=== PATIENT | female | born 1960 | race Asian ===

== ENCOUNTER 2018-06-13 13:22 | Observation (INO) ==
--- NOTE | 2018-06-13 14:13 | ED ---
HPI General Chief complaint: Chest Pain Stated complaint: chest pain Time Seen by Provider: 06/13/18 14:10 History of Present Illness HPI narrative: 58-year-old female with history of hypertension and diabetes presents via EMS for evaluation of chest pain. Symptoms started this morning at 9 AM. She reports that she was sweeping when symptoms started. She reports that the pain was in the substernal and epigastric region. There is associated dizziness and lightheadedness. She received 324 mg of aspirin and 3 sublingual nitroglycerin via EMS. Initially her blood pressure was noted to be 200/100 and improved to 160/90 after this treatment per EMS. Her symptoms have vastly improved. Currently she is complaining of mild pain in the epigastrium and substernal region. She reports some nausea as well as one episode of emesis as well. Denies cough, congestion, dysuria, flank pain, back pain, lower extremity edema. Denies any known personal history of coronary artery disease. She reports her father of an [place] at the age of 61. She has no other complaints at this time. Related Data Home Medications Medication Instructions Recorded Confirmed amlodipine 10 mg PO DAILY 06/13/18 06/13/18 Allergies Allergy/AdvReac Type Severity Reaction Status Date / Time No Known Allergies Allergy Verified 06/13/18 14:12 Review of Systems ROS: all other systems reviewed are negative [facility] Medical History Medical History Diabetes (Acute) Hypertension (Acute) Social History Social History Substance History: No History of Abuse Second Hand Smoke Exposure: No Smoking Status: Former smoker How Often Do You Have a Drink Containing Alcohol: Never Recent Travel in [facility] within the Last 8 Weeks: No Recent Out of Country Travel within the Last 8 Weeks: No Immunization History Tetanus Immunization: Unsure Exam Narrative Exam Narrative: GENERAL: Well-developed well-nourished female no acute distress SKIN: Warm and dry. HEAD: Atraumatic. Normocephalic. EYES: Pupils equal and round. No scleral icterus. No injection or drainage. ENT: No nasal bleeding or discharge. Mucous membranes pink and moist. NECK: Trachea midline. No JVD. CARDIOVASCULAR: Regular rate and rhythm. No murmur appreciated. RESPIRATORY: No accessory muscle use. Clear to auscultation. Breath sounds equal bilaterally. GASTROINTESTINAL: Abdomen soft, nontender. There is no right upper quadrant tenderness. MUSCULOSKELETAL: No obvious deformities. No clubbing. No cyanosis. No edema. NEUROLOGICAL: Awake and alert. No obvious cranial nerve deficits. Motor grossly within normal limits. Normal speech. Course Initial Documented Vital Signs Pulse Rate 74 06/13/18 14:00 Respiratory Rate 20 06/13/18 14:00 Blood Pressure 197/93 H 06/13/18 14:00 Pulse Oximetry 98 06/13/18 14:00 Last Documented Vital Signs Temperature 97.7 F 06/13/18 14:10 Pulse Rate 77 06/13/18 16:18 Respiratory Rate 21 06/13/18 16:18 Blood Pressure 168/100 H 06/13/18 16:33 Pulse Oximetry 100 06/13/18 16:34 Medical Decision Making ALEXANDER Attestation ALEXANDER supervised visit: Yes Attestation: I, Dr. Moscoso, have reviewed the advance practice practitioner's documentation and am in agreement, met with the patient face to face, made the diagnosis, and the medical decision making was done by me. *My assessment and Findings: Patient is a 58 year old female who comes in complaining of chest pain that started this morning while cleaning. She says she has no doctor here and has not seen a doctor in over a year. Exam shows no acute abnormalities. Labs show no acute abnormalities, Troponin is negative. Patient will be placed in chest pain center for further management. MDM Narrative Medical decision making narrative: Patient was placed on ECG monitoring pulse oximetry. A 12-lead EKG was obtained revealing sinus rhythm with a rate of 74, no acute ST elevations. Lab work, chest x-ray ordered. The patient was given 10 mg of labetalol. Lab work and imaging studies have been reviewed and found to 164/93. The patient's pain has resolved completely. At this point in time given her risk factors the plan is to admit her into the chest pain center for serial cardiac enzymes and rule out purposes. She is agreeable. Medical Screen Exam Complete: Yes Emergency Medical Condition: Yes Differential Diagnosis Differential Diagnosis: Acute coronary syndrome, aortic dissection, pericarditis , myocarditis Lab Data Result diagrams: 06/13/18 14:19 06/13/18 14:19 Lab Results 06/13/18 06/13/18 06/13/18 Range/Units 14:19 14:19 14:19 WBC 8.1 (4.0-11.0) th/mm3 RBC 4.27 (4.00-5.30) mil/mm3 Hgb 14.2 (11.6-15.3) gm/dL Hct 40.9 (35.0-46.0) % MCV 95.7 (80.0-100.0) fL MCH 33.3 (27.0-34.0) pg MCHC 34.8 (32.0-36.0) % RDW 12.9 (11.6-17.2) % Plt Count 149 L (150-450) th/mm3 MPV 10.9 (7.0-11.0) fL Neut % (Auto) 76.4 H (16.0-70.0) % Lymph % (Auto) 15.7 (9.0-44.0) % [place] % (Auto) 6.7 (0.0-8.0) % Eos % (Auto) 0.8 (0.0-4.0) % Baso % (Auto) 0.4 (0.0-2.0) % Neut # (Auto) 6.2 (1.8-7.7) th/mm3 Lymph # (Auto) 1.3 (1.0-4.8) th/mm3 [place] # (Auto) 0.5 (0.0-0.9) th/mm3 Eos # (Auto) 0.1 (0.0-0.4) th/mm3 Baso # (Auto) 0.0 (0.0-0.2) th/mm3 WBC Differential . Differential Comment Auto diff final PT 9.8 (9.8-11.6) sec INR 1.0 Ratio APTT 27.8 (23.4-31.7) sec Sodium 139 (136-145) meq/L Potassium 3.5 (3.5-5.1) meq/L Chloride 102 (98-107) meq/L Carbon Dioxide 28.6 (21.0-32.0) meq/L Anion Gap 8 (5-15) meq/L BUN 12 (7-18) mg/dL Creatinine 0.63 (0.50-1.00) mg/dL Estimated GFR Greater than 89 (>89) mL/min Random Glucose 181 H (74-106) mg/dL Calcium 8.6 (8.5-10.1) mg/dL Magnesium 1.9 (1.5-2.5) mg/dL Total Bilirubin 0.2 (0.2-1.0) mg/dL AST 16 (15-37) U/L ALT 24 (10-53) U/L Alkaline Phosphatase 88 (45-117) U/L Total Creatine Kinase 67 (26-192) U/L Troponin I 0.03 (0.02-0.05) ng/mL Total Protein 7.5 (6.4-8.2) g/dL Albumin 3.7 (3.4-5.0) g/dL Lipase 175 (73-393) U/L Imaging Data Radiologist's impression: Chest X-Ray 06/13/18 14:10 CONCLUSION: 1. No acute cardiopulmonary disease. Discharge Plan Discharge Disposition Patient Disposition: ED Admit(ED Internal Use Only) Discharge Condition Condition: Stable Discharge Order Discharge Orders: ED Use Only Admit Order (Routine); Ordered 06/13/18 Ordered By: Wali Chambers Discharge Details Diagnosis: Chest pain Physicians Team ED Provider: Milli Moscoso ED Midlevel Provider: Wali Chambers Primary Care Provider: Primary Care Danayi,Kate Attending Provider: Germania Tate Status ED Status: Admitted Observation Patient
[2018-06-13] MEDS ORDERED: Labetalol HCl Inj 100 MG/20 ML Vial IV.PUSH ONE (14:16)
[2018-06-13] MEDS ORDERED: Labetalol HCl Inj 100 MG/20 ML Vial ONE (14:26)
--- NOTE | 2018-06-13 14:42 | XR ---
EXAM DATE: 06/13/2018 2:32 PM EST AGE/SEX: 58 years / Female INDICATIONS: Dizzy today. CLINICAL DATA: This is the patient's initial encounter. Patient reports that signs and symptoms have been present for 1 day and indicates a pain score of 0/10. MEDICAL/SURGICAL HISTORY: None. None. COMPARISON: No prior exams available for comparison. FINDINGS: A single AP view of the chest demonstrates the lungs to be symmetrically aerated without evidence of mass, infiltrate or effusion. The cardiomediastinal contours are unremarkable. Osseous structures a re intact. CONCLUSION: 1. No acute cardiopulmonary disease. Electronically signed by: Sami Mora MD 06/13/2018 2:40 PM EST
[2018-06-13 15:01] LABS: Baso % (Auto) 0.4 % (0.0-2.0); Eos # (Auto) 0.1 th/mm3 (0.0-0.4); Eos % (Auto) 0.8 % (0.0-4.0); Hematocrit 40.9 % (35.0-46.0); Hemoglobin 14.2 gm/dL (11.6-15.3); Lymph # (Auto) 1.3 th/mm3 (1.0-4.8); Lymph % (Auto) 15.7 % (9.0-44.0); Mean Corpuscular HGB Conc 34.8 % (32.0-36.0); Mean Corpuscular Hemoglobin 33.3 pg (27.0-34.0); Mean Corpuscular Volume 95.7 fL (80.0-100.0); Mean Platelet Volume 10.9 fL (7.0-11.0); Mono # (Auto) 0.5 th/mm3 (0.0-0.9); Mono % (Auto) 6.7 % (0.0-8.0); Neut # (Auto) 6.2 th/mm3 (1.8-7.7); Neut % (Auto) 76.4 % (16.0-70.0); Platelet Count 149 th/mm3 (150-450); Red Blood Count 4.27 mil/mm3 (4.00-5.30); Red Cell Distribution Width 12.9 % (11.6-17.2); White Blood Count 8.1 th/mm3 (4.0-11.0)
[2018-06-13 15:08] LABS: Alanine Aminotransferase 24 U/L (10-53); Albumin 3.7 g/dL (3.4-5.0); Alkaline Phosphatase 88 U/L (45-117); Anion Gap 8 meq/L (5-15); Aspartate Aminotransferase 16 U/L (15-37); Blood Urea Nitrogen 12 mg/dL (7-18); Calcium 8.6 mg/dL (8.5-10.1); Carbon Dioxide 28.6 meq/L (21.0-32.0); Chloride 102 meq/L (98-107); Glomerular Filtration Rate Greater Than 89 mL/min (>89); Glucose,Random 181 mg/dL (74-106); Lipase 175 U/L (73-393); Magnesium 1.9 mg/dL (1.5-2.5); Potassium 3.5 meq/L (3.5-5.1); Sodium 139 meq/L (136-145); Total Protein 7.5 g/dL (6.4-8.2); Troponin I 0.03 ng/mL (0.02-0.05)
[2018-06-13 15:09] LABS: Creatine Kinase 67 U/L (26-192)
[2018-06-13 15:12] LABS: Activated Partial Thrombo Time 27.8 sec (23.4-31.7)
[2018-06-13 15:14] LABS: Prothrombin Time 9.8 sec (9.8-11.6)
[2018-06-13] MEDS ORDERED: ALPRAZolam 0.25 MG Tablet PO PRN (15:59)
[2018-06-13] MEDS ORDERED: Acetaminophen 500 MG Tablet PO PRN (16:01)
--- NOTE | 2018-06-13 16:11 | P.HPCA ---
History of Present Illness Primary Care Physician: No Primary Care Physician Chief Complaint: Chest pain History of Present Illness: This is a 58-year-old male with history of hypertension that presents to ED via EMS with complaint of chest pain. She has history of hypertension but states she only takes her amlodipine 10 mg when she is dizzy or has a headache. Out of weeks time she may take it twice. She did take it this morning after having chest pain and feeling dizzy and having headache. She states she was doing some housework around 9:00 this morning when she developed a central chest pressure that she describes as mild. The same time she felt as if the room was spinning and had a headache. She took 1 of her blood pressure pills but her symptoms did not resolve prompting her to come to the ED. States the chest discomfort lasted about 3 hours. She was short of breath nauseous and diaphoretic. She found nothing in particular to help or worsen the discomfort when it was present. Discomfort did not radiate. Cannot recall prior cardiac workup. States she has blood pressure medicine to take at home she is does not take it daily. There is heart disease in her family. Currently denies discomfort in her chest. History of hypertension and is essentially noncompliant with medication. Denies hyperlipidemia, diabetes, and known CAD. Patient quit smoking in 2010 after smoking about 2 pack of series daily for 3 years. Denies alcohol or illicit drug use. She states her father at age 61 of a myocardial infarction. - Diagnosis (1) Chest pain (2) Hypertension Review of Systems GENERAL: This is a well-nourished, well-developed patient, in no apparent distress. Patient speaks in clear complete sentences. Patient is pleasant. HEENT: Head is atraumatic and normocephalic. Neck is supple without lymphadenopathy and trachea is midline. No JVD or carotid bruits. CARDIOVASCULAR: Regular rate and rhythm without murmurs, gallops, or rubs. RESPIRATORY: Clear to auscultation. Breath sounds equal bilaterally. No wheezes , rales, or rhonchi. Chest wall is nontender. No use of accessory muscles. GASTROINTESTINAL: Abdomen is nontender, nondistended. Abdomen soft. No obvious pulsatile mass or bruit. No CVA tenderness. Strong femoral pulses bilaterally. Normal bowel sounds in all quadrants. MUSCULOSKELETAL: Patient is moving upper and lower extremities freely. No calf tenderness or edema, no Homans sign. Strong pulses in upper and lower extremities. NEUROLOGICAL: Patient is alert and oriented. Cranial nerves 2-12 are grossly intact. No focal deficits and speech is clear. SKIN: No rash and turgor is normal. PMFSH - History History Provided By: Patient - Medical History Medical History: Medical History (Last Updated 06/13/18 @ 14:08 by Carline Lozano) Diabetes Hypertension - Tobacco History Second Hand Smoke Exposure: No Smoking Status: Former smoker - Alcohol History How Often Do You Have a Drink Containing Alcohol: Never - Substance Use History Substance History: No History of Abuse - Travel History Recent Travel in the [facility] Within the Last 8 Weeks: No Recent Travel Out of the Country Within the Last 8 Weeks: No - Immunization History Tetanus Immunization: Unsure Medications and Allergies Active Medications: Active Medications Alprazolam (Xanax) 0.25 mg PO Q8H PRN PRN Reason: ANXIETY Aspirin (Aspirin) 325 mg PO DAILY ERIC Ondansetron HCl (Zofran Inj) 4 mg IV.PUSH Q6H PRN PRN Reason: NAUSEA Pantoprazole Sodium (Protonix) 40 mg PO DAILY ERIC Sodium Chloride (Ns Flush) 2 ml IV.FLUSH UNSCH PRN PRN Reason: FLUSH AFTER USING IV ACCESS Sodium Chloride (Ns Flush) 2 ml IV.FLUSH BID ERIC Sodium Chloride (Ns Flush) 2 ml IV.FLUSH PRN PRN PRN Reason: FLUSH AFTER USING IV ACCESS Allergies Allergy/AdvReac Type Severity Reaction Status Date / Time No Known Allergies Allergy Verified 06/13/18 14:12 Home Medications Medication Instructions Recorded Confirmed Type amlodipine 10 mg PO DAILY 06/13/18 06/13/18 History Exam Vital signs: Vital Signs 06/13/18 14:00 06/13/18 14:10 06/13/18 14:30 Temperature 97.7 F Pulse Rate 74 72 Respiratory Rate 20 19 Blood Pressure 197/93 H 197/93 H 174/97 H Pulse Oximetry 97 98 06/13/18 15:00 06/13/18 15:49 Temperature Pulse Rate Respiratory Rate Blood Pressure 162/91 H Pulse Oximetry 97 Intake & Output 06/12/18 06/13/18 06/13/18 18:59 06:59 18:59 Weight 62.142 kg Results 06/13/18 14:19 06/13/18 14:19 Cardiac Enzymes 06/13/18 Range/Units 14:19 AST 16 (15-37) U/L Troponin I 0.03 (0.02-0.05) ng/mL Coagulation 06/13/18 Range/Units 14:19 PT 9.8 (9.8-11.6) sec APTT 27.8 (23.4-31.7) sec CBC 06/13/18 Range/Units 14:19 WBC 8.1 (4.0-11.0) th/mm3 RBC 4.27 (4.00-5.30) mil/mm3 Hgb 14.2 (11.6-15.3) gm/dL Hct 40.9 (35.0-46.0) % Plt Count 149 L (150-450) th/mm3 Neut # (Auto) 6.2 (1.8-7.7) th/mm3 Lymph # (Auto) 1.3 (1.0-4.8) th/mm3 [place] # (Auto) 0.5 (0.0-0.9) th/mm3 Eos # (Auto) 0.1 (0.0-0.4) th/mm3 Baso # (Auto) 0.0 (0.0-0.2) th/mm3 Comprehensive Metabolic Panel 06/13/18 Range/Units 14:19 Sodium 139 (136-145) meq/L Potassium 3.5 (3.5-5.1) meq/L Chloride 102 (98-107) meq/L Carbon Dioxide 28.6 (21.0-32.0) meq/L BUN 12 (7-18) mg/dL Creatinine 0.63 (0.50-1.00) mg/dL Calcium 8.6 (8.5-10.1) mg/dL AST 16 (15-37) U/L ALT 24 (10-53) U/L Alkaline Phosphatase 88 (45-117) U/L Total Protein 7.5 (6.4-8.2) g/dL Albumin 3.7 (3.4-5.0) g/dL Intake and Output 06/13/18 06/13/18 06/13/18 06:59 14:59 22:59 Other: Weight 62.142 kg Patient Weight 06/14/18 06:59 Weight 62.142 kg - Imaging and Cardiology Imaging: Impressions Chest X-Ray 06/13/18 14:10 CONCLUSION: 1. No acute cardiopulmonary disease. EKG interpretations - EKG EKG shows: sinus rhythm (Initial EKG is sinus rhythm without significant ST segment depressions or elevations.) Caprini VTE Risk Assessment Caprini VTE Risk Assessment: No/Low Risk (score <= 1) Caprini Risk Assessment Model: Point Value = 1 Point Value = 2 Point Value = 3 Point Value = 5 Age 41-60 Minor surgery BMI > 25 kg/m2 Swollen legs Varicose veins or History of unexplained or recurrent spontaneous Oral contraceptives or hormone replacement Sepsis (< 1 month) Serious lung disease, including pneumonia (< 1 month) Abnormal pulmonary function Acute myocardial infarction Congestive heart failure (< 1 month) History of inflammatory bowel disease Medical patient at bed rest Age 61-74 Arthroscopic surgery Major open surgery (> 45 min) Laparoscopic surgery (> 45 min) Malignancy Confined to bed (> 72 hours) Immobilizing plaster cast Central venous access Age >= 75 History of VTE Family history of VTE Factor V Leiden Prothrombin [id number] Lupus anticoagulant Anticardiolipin antibodies Elevated serum homocysteine Heparin-induced thrombocytopenia Other congenital or acquired thrombophilia Stroke (< 1 month) Elective arthroplasty Hip, pelvis, or leg fracture Acute spinal cord injury (< 1 month) Prophylaxis Regimen: Total Risk Factor Score Risk Level Prophylaxis Regimen 0-1 Low Early ambulation 2 Moderate Order ONE of the following: *Sequential Compression Device (SCD) *Heparin 5000 units SQ BID 3-4 Higher Order ONE of the following medications: *Heparin 5000 units SQ TID *Enoxaparin/Lovenox 40 mg SQ daily (WT < 150 kg, CrCl > 30 mL/min) *Enoxaparin/Lovenox 30 mg SQ daily (WT < 150 kg, CrCl > 10-29 mL/min) *Enoxaparin/Lovenox 30 mg SQ BID (WT < 150 kg, CrCl > 30 mL/min) AND/OR *Sequential Compression Device (SCD) 5 or more Highest Order ONE of the following medications: *Heparin 5000 units SQ TID (Preferred with Epidurals) *Enoxaparin/Lovenox 40 mg SQ daily (WT < 150 kg, CrCl > 30 mL/min) *Enoxaparin/Lovenox 30 mg SQ daily (WT < 150 kg, CrCl > 10-29 mL/min) *Enoxaparin/Lovenox 30 mg SQ BID (WT < 150 kg, CrCl > 30 mL/min) AND *Sequential Compression Device (SCD) Assessment and Plan - Assessment (1) Chest pain Code(s): R07.9 - Chest pain, unspecified Status: Acute (2) Hypertension Code(s): I10 - Essential (primary) hypertension Status: Acute - Plan * Chest pain: Patient will continue to have serial cardiac enzymes and EKGs for ruling out purposes. She will be seen by Dr. Tate of cardiology in the chest pain center. She will spend the evening in the chest pain center, she will have a stress test in the morning if she rules out. Patient will be discharged if stress test is nonischemic with instructions to follow-up with PCP. Return to ED for interval issues. * Hypertension: Patient admits to not taking medication on a daily basis but did take it this morning after being afraid with having chest pain, headache, and dizziness. She took amlodipine 10 mg tablet and her headache and dizziness has resolved however the chest pain did not wearing her which brought her to the ED. She has been advised to take her amlodipine on a daily basis and to follow-up with PCP. Patient is stable at this time. She is agreeable to this plan.
[2018-06-13 17:57] LABS: Troponin I 0.03 ng/mL (0.02-0.05)
[2018-06-13] MEDS: Insulin NovoLIN Regular Correctional Sugar Inj SQ SCH ×2 (18:43→21:21)
[2018-06-13 20:17] VITALS: RESP 16
[2018-06-13 20:59] LABS: Troponin I 0.03 ng/mL (0.02-0.05)
[2018-06-14 08:54] VITALS: TEMP 97.4
[2018-06-14] MEDS ORDERED: Aspirin 325 MG Tablet PO SCH (09:00)
[2018-06-14] MEDS: Insulin NovoLIN Regular Correctional Sugar Inj SQ SCH ×2 (09:24→12:22)
[2018-06-14] MEDS ORDERED: Regadenoson Inj 0.4 MG/5 ML Syringe IV.PUSH ONE ×2 (11:04→11:12)
--- NOTE | 2018-06-14 12:00 | NM ---
EXAM DATE: 06/14/2018 11:54 AM EST AGE/SEX: 58 years / Female INDICATIONS:Angina. . Central chest pain. CLINICAL DATA: This is the patient's initial encounter. Patient reports that signs and symptoms have been present for 1 day and indicates a pain score of 2/10. MEDICAL/SURGICAL HISTORY: Hyperparathyroidism. Diabetes mellitus type II. None. COMPARISON: . DOSE: 8.7 mCi Tc 99m Myoview at rest 25.4 mCi [id number] at stress 0.4 mg Lexiscan STRESS SYMPTOMS: None. EJECTION FRACTION: 67 % TECHNIQUE: The patient underwent pharmacologic stress with infusion of prescribed dose. Continuous ECG tracing was monitored during stress. Gated SPECT imaging was performed after stress and conventi onal SPECT imaging was performed at rest. The examination was performed on a SPECT/CT scanner, both attenuation and non-corrected datasets were reviewed. FINDINGS: There is minimal redistribution in the lateral wall beginning in the mid lateral wall extending towar ds the base. This involves a small segment of myocardium. There are no fixed defects evident. The ejection fraction scattered at 67% with reasonably normal wall motion across this segment. RISK CATEGORY: Low CONCLUSION: 1. Minimal redistribution as described above lateral wall with normal wall motion across this segmen t. Correlation suggested. Electronically signed by: Stevie Mcclure MD 06/14/2018 11:59 AM EST
[2018-06-14 12:55] VITALS: BP 187/84; PULSE 73; O2SAT 100
--- NOTE | 2018-06-14 14:00 | P.PNCA ---
Subjective Interval history: Offers no complaints. Denies chest pain. Medications and Allergies Active Medications: Active Medications Acetaminophen (Tylenol) 500 mg PO Q6H PRN PRN Reason: pain scale 1-5 Hydrocodone Bitart/Acetaminophen ([place]ana 7.5/325) 1 tab PO Q6H PRN PRN Reason: pain scale 6-10 Albuterol (Duoneb Neb (Prn)) 1 ampul NEB Q4HR NEB PRN PRN Reason: SHORTNESS OF BREATH/WHEEZING Alprazolam (Xanax) 0.25 mg PO Q8H PRN PRN Reason: ANXIETY Aspirin (Aspirin) 325 mg PO DAILY [facility] Last Admin: 06/14/18 08:43 Dose: 325 mg Clonidine HCl (Catapres) 0.1 mg PO Q6H PRN PRN Reason: SBP >165 OR DBP > 110 Last Admin: 06/13/18 16:33 Dose: 0.1 mg Insulin Human Regular (Novolin R Correctional Sugar Inj) 0 units SQ ACHS [facility]; Protocol Last Admin: 06/14/18 12:22 Dose: 5 units Ondansetron HCl (Zofran Inj) 4 mg IV.PUSH Q6H PRN PRN Reason: NAUSEA Pantoprazole Sodium (Protonix) 40 mg PO Q24H [facility] Last Admin: 06/13/18 16:33 Dose: 40 mg Sodium Chloride (Ns Flush) 2 ml IV.FLUSH BID [facility] Last Admin: 06/14/18 08:43 Dose: 2 ml Sodium Chloride (Ns Flush) 2 ml IV.FLUSH PRN PRN PRN Reason: FLUSH AFTER USING IV ACCESS Allergies Allergy/AdvReac Type Severity Reaction Status Date / Time No Known Allergies Allergy Verified 06/13/18 14:12 Home Medications Medication Instructions Recorded Confirmed Type amlodipine 10 mg PO DAILY 06/13/18 06/13/18 History Physical Exam Vital signs: Vital Signs 06/13/18 14:00 06/13/18 14:10 06/13/18 14:30 Temperature 97.7 F Pulse Rate 74 72 Respiratory Rate 20 19 Blood Pressure 197/93 H 197/93 H 174/97 H Pulse Oximetry 97 98 06/13/18 15:00 06/13/18 15:49 06/13/18 16:18 Temperature Pulse Rate 77 Respiratory Rate 21 Blood Pressure 162/91 H 170/94 H Pulse Oximetry 97 97 06/13/18 16:33 06/13/18 16:34 06/13/18 18:36 Temperature Pulse Rate 98 H Respiratory Rate Blood Pressure 168/100 H Pulse Oximetry 100 06/13/18 20:00 06/13/18 20:29 06/14/18 00:00 Temperature 98.3 F 97.7 F Pulse Rate 85 82 72 Respiratory Rate 16 16 Blood Pressure 115/62 134/77 Pulse Oximetry 96 97 06/14/18 04:00 06/14/18 08:00 06/14/18 12:00 Temperature 97.7 F 97.4 F L Pulse Rate 69 72 73 Respiratory Rate 16 16 16 Blood Pressure 139/82 161/84 H 187/84 H Pulse Oximetry 98 96 100 Intake & Output 06/13/18 06/14/18 06/14/18 18:59 06:59 18:59 Intake Total 240 / 240 Balance 240 / 240 Weight 62.142 kg 54.431 kg Intake: Oral 240 / 240 Other: # Voids 2 Weight On Admission 54.431 kg Narrative: General: No apparent distress. Cardiac: Regular rate and rhythm without murmur gallop or rub. Respiratory: Lungs clear to auscultate bilaterally. GI: Abdomen nontender, bowel sounds normal. Results 06/13/18 14:19 06/13/18 14:19 Cardiac Enzymes 06/13/18 06/13/18 06/13/18 Range/Units 14:19 16:50 20:10 AST 16 (15-37) U/L Troponin I 0.03 0.03 0.03 (0.02-0.05) ng/mL Coagulation 06/13/18 Range/Units 14:19 PT 9.8 (9.8-11.6) sec APTT 27.8 (23.4-31.7) sec CBC 06/13/18 Range/Units 14:19 WBC 8.1 (4.0-11.0) th/mm3 RBC 4.27 (4.00-5.30) mil/mm3 Hgb 14.2 (11.6-15.3) gm/dL Hct 40.9 (35.0-46.0) % Plt Count 149 L (150-450) th/mm3 Neut # (Auto) 6.2 (1.8-7.7) th/mm3 Lymph # (Auto) 1.3 (1.0-4.8) th/mm3 [place] # (Auto) 0.5 (0.0-0.9) th/mm3 Eos # (Auto) 0.1 (0.0-0.4) th/mm3 Baso # (Auto) 0.0 (0.0-0.2) th/mm3 Comprehensive Metabolic Panel 06/13/18 Range/Units 14:19 Sodium 139 (136-145) meq/L Potassium 3.5 (3.5-5.1) meq/L Chloride 102 (98-107) meq/L Carbon Dioxide 28.6 (21.0-32.0) meq/L BUN 12 (7-18) mg/dL Creatinine 0.63 (0.50-1.00) mg/dL Calcium 8.6 (8.5-10.1) mg/dL AST 16 (15-37) U/L ALT 24 (10-53) U/L Alkaline Phosphatase 88 (45-117) U/L Total Protein 7.5 (6.4-8.2) g/dL Albumin 3.7 (3.4-5.0) g/dL Intake and Output 06/13/18 06/14/18 06/14/18 22:59 06:59 14:59 Intake Total 240 / 240 Balance 240 / 240 Intake: Oral 240 / 240 Other: # Voids 2 Weight 54.431 kg Weight On Admission 54.431 kg - Imaging and Cardiology Imaging: Impressions Chest X-Ray 06/13/18 14:10 CONCLUSION: 1. No acute cardiopulmonary disease. Myocardial Perfusion Scan Nuc Med 06/14/18 08:12 CONCLUSION: 1. Minimal redistribution as described above lateral wall with normal wall motion across this segment. Correlation suggested. Assessment and Plan - Assessment (1) Chest pain Code(s): R07.9 - Chest pain, unspecified Status: Acute (2) Hypertension Code(s): I10 - Essential (primary) hypertension Status: Acute - Plan * Chest pain: Patient will continue to have serial cardiac enzymes and EKGs for ruling out purposes. She will be seen by Dr. Tate of cardiology in the chest pain center. She will spend the evening in the chest pain center, she will have a stress test in the morning if she rules out. Patient will be discharged if stress test is nonischemic with instructions to follow-up with PCP. Return to ED for interval issues. * Hypertension: Patient admits to not taking medication on a daily basis but did take it this morning after being afraid with having chest pain, headache, and dizziness. She took amlodipine 10 mg tablet and her headache and dizziness has resolved however the chest pain did not wearing her which brought her to the ED. She has been advised to take her amlodipine on a daily basis and to follow-up with PCP. Patient is stable at this time. She is agreeable to this plan. The patient's stress test was read by radiologist as minimal redistribution as described above lateral wall with normal wall motion across the segment. Low risk category. EF 67%. Discussed with Dr. Marlon Ty. Instructed to speak with cardiology collection analyst. Spoke with Dr. Ortiz of cardiology, discussed the nuclear imaging findings as they read by radiologist. Stated patient would not need heart catheterization and advised to have her continue amlodipine and follow-up with PCP. This was explained to the patient. She is agreeable to this plan.
--- NOTE | 2018-06-15 09:17 | ECG ---
Date Performed: 06/13/2018 Time Performed: 20:12:14 PTAGE: 58 years EKG: Sinus rhythm NORMAL ECG PREVIOUS TRACING : 06/13/2018 17.23 Since previous tracing, no significant change noted DOCTOR: Marlon Ty Interpretating Date/Time 06/15/2018 09:15:57
--- NOTE | 2018-06-15 09:18 | ECG ---
Date Performed: 06/13/2018 Time Performed: 14:14:52 PTAGE: 58 years EKG: Sinus rhythm POSSIBLE LEFT ATRIAL ENLARGEMENT BORDERLINE ECG INTERPRETATION BASED ON A DEFAULT AGE OF 40 YEARS NO PREVIOUS TRACING DOCTOR: Marlon Ty Interpretating Date/Time 06/15/2018 09:17:43
--- NOTE | 2018-06-15 09:18 | ECG ---
Date Performed: 06/13/2018 Time Performed: 17:23:56 PTAGE: 58 years EKG: Sinus rhythm NORMAL ECG PREVIOUS TRACING : 06/13/2018 14.14 Since previous tracing, no significant change noted DOCTOR: Marlon Ty Interpretating Date/Time 06/15/2018 09:16:09
--- NOTE | 2018-06-15 09:28 | TR ---
Date Performed: 06/14/2018 Time Performed: 11:03:16 DOCTOR: Marlon Ty DRUG LIST: CLINICAL HISTORY: CHEST PAIN REASON FOR TEST: CHEST PAIN REASON FOR ENDING: OBSERVATION: CONCLUSION: COMMENTS: Lexiscan stress test was performed under standard four minute protocol. Radionuclide was injected one minute prior to ending the test. No electrocardiographic abormalities were present t o suggest ischemia. Nuclear imaging and interpretation are pending.
--- NOTE | 2018-06-15 09:31 | TR ---
Date Performed: 06/14/2018 Time Performed: 08:00:02 DOCTOR: Marlon Ty DRUG LIST: CLINICAL HISTORY: REASON FOR TEST: REASON FOR ENDING: OBSERVATION: CONCLUSION: ATTEMPTED GISELLA PROTOCOL. TEST STOPPED PRIOR TO REACHING GOAL HR SECONDARY TO LEG FA TIGUE. NO CP OR SOB. Maximum HH=050 % Target HR Achieved=93.0% Maximum OJ=883/80 Total Exercise Time= 3:20 COMMENTS: Non-diagnostic test. ST depression noted in the inferior leads which could represent i schemia. Clinical correlation needed
== END 2018-06-14 17:36 | disposition home or self-care (01) ==
LOC: NEPE 13:22 → NEDA 13:22 → NEPHCDU 17:55
PROVIDERS: ADMIT Internal Medicine Interventional Cardiology; ATTEND Internal Medicine Interventional Cardiology